=== PATIENT | male | born 1935 | race Caucasian/White ===

== ENCOUNTER → 2016-12-06 | Outpatient (CLI) | payer OTHER ==
[~2016-12-06] MED LIST: ADVAIR 250/501 EA INH; ALBUTEROL2.5 MG/0.5 INH; ALLOPURINOL300 MG PO; ARTIFICIAL TEAR30 M1 OPH; ASPIRIN81 M1 PO; ATORVASTATIN CA40 M1 PO; BREO ELLIPTA 11 EACH IH; CILOSTAZOL100 MG PO; COLACE100 MG PO; DUONEB 3 MG/3 ML3 M1 NEB; EX-LAX25 MG PO; FUROSEMIDE40 MG PO; FUROSEMIDE80 MG PO; IRON PO; K-TAB20 MEQ PO; MEFOXIN IV; PERCOCET 325 MG1 TA2 PO; PLAVIX75 M1 PO; PREDNISONE20 M1 PO; PREDNISONE5 MG PO; VANCO 1.51.5 GM/500 IV; VITAMIN D34000 UNIT PO
== END | disposition home or self-care (01) ==
LOC: WOUNDCARE 01:42
DX: L02.416 Cutaneous abscess of left lower limb (principal); I73.9 Peripheral vascular disease, unspecified; Z87.891 Personal history of nicotine dependence; Z85.46 Personal history of malignant neoplasm of prostate

== ENCOUNTER → 2016-12-12 | Outpatient (CLI) | payer OTHER | END | disposition home or self-care (01) | LOC: WOUNDCARE 01:10 | DX: L02.416 Cutaneous abscess of left lower limb (principal); I73.9 Peripheral vascular disease, unspecified; Z85.46 Personal history of malignant neoplasm of prostate; Z87.891 Personal history of nicotine dependence ==

== ENCOUNTER → 2016-12-19 | Outpatient (CLI) | payer OTHER | END | disposition home or self-care (01) | LOC: WOUNDCARE 00:50 | DX: L02.416 Cutaneous abscess of left lower limb (principal); I73.9 Peripheral vascular disease, unspecified; Z85.46 Personal history of malignant neoplasm of prostate; Z87.891 Personal history of nicotine dependence ==

== ENCOUNTER → 2016-12-26 | Outpatient (CLI) | payer OTHER | END | disposition home or self-care (01) | LOC: WOUNDCARE 03:27 | DX: L02.416 Cutaneous abscess of left lower limb (principal); L92.9 Granulomatous disorder of the skin and subcutaneous tissue, unspecified; I73.9 Peripheral vascular disease, unspecified; Z85.46 Personal history of malignant neoplasm of prostate; Z87.891 Personal history of nicotine dependence ==

== ENCOUNTER → 2017-01-09 | Outpatient (CLI) | payer OTHER | END | disposition home or self-care (01) | LOC: WOUNDCARE 02:58 | DX: L02.416 Cutaneous abscess of left lower limb (principal); I73.9 Peripheral vascular disease, unspecified; L92.9 Granulomatous disorder of the skin and subcutaneous tissue, unspecified; Z85.46 Personal history of malignant neoplasm of prostate; Z87.891 Personal history of nicotine dependence ==

== ENCOUNTER → 2017-01-15 | Outpatient (CLI) | payer OTHER ==
[2017-01-15 13:43] LABS: CREATININE 1.09 mg/dL (0.70-1.30)
== END | disposition home or self-care (01) ==
LOC: LAB 13:14 → CT 14:00
PROVIDERS: Radiology Diagnostic Radiology
DX: I73.9 Peripheral vascular disease, unspecified (principal); L02.416 Cutaneous abscess of left lower limb; T82.319A Breakdown (mechanical) of unspecified vascular grafts, initial encounter

== ENCOUNTER → 2017-01-16 | Outpatient (CLI) | payer OTHER | END | disposition home or self-care (01) | LOC: WOUNDCARE 02:47 | DX: L02.416 Cutaneous abscess of left lower limb (principal); I73.9 Peripheral vascular disease, unspecified; L92.9 Granulomatous disorder of the skin and subcutaneous tissue, unspecified; Z85.46 Personal history of malignant neoplasm of prostate; Z87.891 Personal history of nicotine dependence ==

== ENCOUNTER → 2017-01-28 | Outpatient (CLI) | payer OTHER | END | disposition home or self-care (01) | LOC: WOUNDCARE 01:14 | DX: T81.89XD Other complications of procedures, not elsewhere classified, subsequent encounter (principal); I73.9 Peripheral vascular disease, unspecified; L92.9 Granulomatous disorder of the skin and subcutaneous tissue, unspecified; Z85.46 Personal history of malignant neoplasm of prostate; Z87.891 Personal history of nicotine dependence; Y83.8 Other surgical procedures as the cause of abnormal reaction of the patient, or of later complication, without mention of misadventure at the time of the procedure ==

== ENCOUNTER → 2017-04-03 | Outpatient (CLI) | payer OTHER | END | disposition home or self-care (01) | LOC: WOUNDCARE 09:21 | DX: T81.89XA Other complications of procedures, not elsewhere classified, initial encounter (principal); I73.9 Peripheral vascular disease, unspecified; Z85.46 Personal history of malignant neoplasm of prostate; Z87.891 Personal history of nicotine dependence; Y83.8 Other surgical procedures as the cause of abnormal reaction of the patient, or of later complication, without mention of misadventure at the time of the procedure ==

== ENCOUNTER → 2017-04-22 | Outpatient (CLI) | payer OTHER | END | disposition home or self-care (01) | LOC: WOUNDCARE 03:25 | DX: T82.868S Thrombosis due to vascular prosthetic devices, implants and grafts, sequela (principal); L92.9 Granulomatous disorder of the skin and subcutaneous tissue, unspecified; L02.416 Cutaneous abscess of left lower limb; I73.9 Peripheral vascular disease, unspecified; Z85.46 Personal history of malignant neoplasm of prostate; Z87.891 Personal history of nicotine dependence; Y83.2 Surgical operation with anastomosis, bypass or graft as the cause of abnormal reaction of the patient, or of later complication, without mention of misadventure at the time of the procedure ==

== ENCOUNTER → 2017-05-06 | Outpatient (CLI) | payer OTHER | END | disposition home or self-care (01) | LOC: WOUNDCARE 02:30 | DX: T82.868S Thrombosis due to vascular prosthetic devices, implants and grafts, sequela (principal); L92.9 Granulomatous disorder of the skin and subcutaneous tissue, unspecified; L02.416 Cutaneous abscess of left lower limb; I73.9 Peripheral vascular disease, unspecified; Z85.46 Personal history of malignant neoplasm of prostate; Z87.891 Personal history of nicotine dependence ==

== ENCOUNTER → 2017-11-13 | Outpatient (CLI) | payer OTHER | END | disposition home or self-care (01) | LOC: WOUNDCARE 05:14 | DX: T82.868S Thrombosis due to vascular prosthetic devices, implants and grafts, sequela (principal); L92.9 Granulomatous disorder of the skin and subcutaneous tissue, unspecified; I73.9 Peripheral vascular disease, unspecified; Z85.46 Personal history of malignant neoplasm of prostate; Z87.891 Personal history of nicotine dependence; Y83.2 Surgical operation with anastomosis, bypass or graft as the cause of abnormal reaction of the patient, or of later complication, without mention of misadventure at the time of the procedure ==

== ENCOUNTER → 2017-11-20 | Outpatient (CLI) | payer OTHER | END | disposition home or self-care (01) | LOC: WOUNDCARE 03:36 | DX: T82.868S Thrombosis due to vascular prosthetic devices, implants and grafts, sequela (principal); I73.9 Peripheral vascular disease, unspecified; L92.9 Granulomatous disorder of the skin and subcutaneous tissue, unspecified; Z87.891 Personal history of nicotine dependence; Z85.46 Personal history of malignant neoplasm of prostate; Y83.2 Surgical operation with anastomosis, bypass or graft as the cause of abnormal reaction of the patient, or of later complication, without mention of misadventure at the time of the procedure ==

== ENCOUNTER → 2017-11-27 | Outpatient (CLI) | payer OTHER | END | disposition home or self-care (01) | LOC: WOUNDCARE 03:41 | DX: T82.868S Thrombosis due to vascular prosthetic devices, implants and grafts, sequela (principal); I73.9 Peripheral vascular disease, unspecified; L92.9 Granulomatous disorder of the skin and subcutaneous tissue, unspecified; Z87.891 Personal history of nicotine dependence; Z85.46 Personal history of malignant neoplasm of prostate; Y83.2 Surgical operation with anastomosis, bypass or graft as the cause of abnormal reaction of the patient, or of later complication, without mention of misadventure at the time of the procedure ==

== ENCOUNTER → 2017-12-04 | Outpatient (CLI) | payer OTHER ==
[2017-12-04 15:13] LABS: URINE AMPHETAMINES < 1000 (1000ng/ml); URINE BARBITURATES < 200 (200ng/ml); URINE BENZODIAZEPINES < 200 (200ng/ml); URINE CANNABINOIDS (THC) < 50 (50ng/ml); URINE COCAINE < 300 (300ng/ml); URINE METHADONE < 300 (300ng/ml); URINE OPIATES < 300 (300ng/ml)
[2017-12-04 15:14] LABS: URINE PHENCYCLIDINE < 25 (25ng/ml)
[2017-12-04 15:15] LABS: BASO % 0.3 % (0.0-1.0); EOS # 0.1 10*3/uL (0.0-0.4); EOS % 1.3 % (1.0-4.0); HEMATOCRIT 32.6 % (42.0-52.0); HEMOGLOBIN 9.6 g/dl (14.0-18.0); LYMPH # 1.5 10*3/uL (1.3-4.4); LYMPH % 16.3 % (27.0-41.0); MEAN CELL VOLUME 76.7 fl (80.0-94.0); MEAN CORPUSCULAR HGB 22.6 pg (27.0-31.0); MEAN CORPUSCULAR HGB CONC 29.4 g/dl (33.0-37.0); MEAN PLATELET VOLUME 9.4 fl (9.6-12.3); MONO # 1.1 10*3/uL (0.1-1.0); MONO % 11.3 % (3.0-9.0); NEUT # 6.6 10*3/uL (2.3-7.9); NEUT % 70.5 % (47.0-73.0); PLATELET COUNT AUTOMATED 268 10*3/uL (130-400); RED BLOOD COUNT 4.25 10*6/uL (4.50-5.90); RED CELL DISTRI WIDTH 16.7 % (0-14.5); WHITE BLOOD COUNT 9.4 10*3/uL (4.8-10.8)
[2017-12-04 15:35] LABS: ALBUMIN 3.1 gm/dl (3.1-4.5); ALKALINE PHOSPHATASE 101 U/L (45-117); BUN 18 mg/dl (7-24); CHLORIDE 107 mmol/L (98-107); POTASSIUM 3.6 mmol/L (3.5-5.1); SGOT/AST 38 IU/L (3-35); SGPT/ALT 45 U/L (12-78); SODIUM 139 mmol/L (136-145); TOTAL PROTEIN 7.1 gm/dL (6.4-8.2)
[2017-12-05 22:02] LABS: HCV LOG10 5.479 (.); HEPATITIS C QNT 301000 IU/mL (.)
== END | disposition home or self-care (01) ==
LOC: LAB 00:35 → WOUNDCARE 00:35
DX: T82.868S Thrombosis due to vascular prosthetic devices, implants and grafts, sequela (principal); I73.9 Peripheral vascular disease, unspecified; L92.8 Other granulomatous disorders of the skin and subcutaneous tissue; J44.9 Chronic obstructive pulmonary disease, unspecified; Z85.46 Personal history of malignant neoplasm of prostate; Z87.891 Personal history of nicotine dependence; Y83.2 Surgical operation with anastomosis, bypass or graft as the cause of abnormal reaction of the patient, or of later complication, without mention of misadventure at the time of the procedure; Z79.899 Other long term (current) drug therapy

== ENCOUNTER → 2017-12-11 | Outpatient (CLI) | payer OTHER | LOC: WOUNDCARE 04:45 | DX: T82.868S Thrombosis due to vascular prosthetic devices, implants and grafts, sequela (principal); I73.9 Peripheral vascular disease, unspecified; L92.8 Other granulomatous disorders of the skin and subcutaneous tissue; Z87.891 Personal history of nicotine dependence; Z85.46 Personal history of malignant neoplasm of prostate ==

== ENCOUNTER → 2017-12-18 | Outpatient (CLI) | payer OTHER | END | disposition home or self-care (01) | LOC: WOUNDCARE 03:33 | DX: T82.868S Thrombosis due to vascular prosthetic devices, implants and grafts, sequela (principal); I73.9 Peripheral vascular disease, unspecified; L92.9 Granulomatous disorder of the skin and subcutaneous tissue, unspecified; Z87.891 Personal history of nicotine dependence; Z85.46 Personal history of malignant neoplasm of prostate; Y83.2 Surgical operation with anastomosis, bypass or graft as the cause of abnormal reaction of the patient, or of later complication, without mention of misadventure at the time of the procedure ==